=== PATIENT | male | born 1955 | race Caucasian/White ===

== ENCOUNTER → 2017-06-22 | Outpatient (CLI) | payer BC ==
--- NOTE | 2017-06-22 10:30 | RAD ---
APPROVED REPORT Patient Location : OUT-PATIENT Indications Varicose Veins Mahan scale images the bilateral saphenofemoral junctions do not reveal any significant thrombus on li mited imaging. The right great saphenous vein measures approximately 6.4 mm and does not show any evidence of reflux . The right anterior accessory saphenous vein measures approximately 4.1 mm and does not show any nery ar evidence of reflux. The left great saphenous vein measures approximate 5.2 mm and does not show an y significant evidence of reflux. The bilateral lesser saphenous veins do not show any evidence of reflux. Critical Notification Critical Value: No <Conclusion> Negative for reflux in the bilateral greater and lesser saphenous veins.
--- NOTE | 2017-06-22 11:41 | CARD ---
APPROVED REPORT EXAM: Two-dimensional and M-mode echocardiogram with Doppler and color Doppler. Other Information Quality : Average Rhythm : NSR INDICATION Lower extremity pain 2D DIMENSIONS RVDd3.6 (2.9-3.5cm)Left Atrium(2D)3.8 (1.6-4.0cm) IVSd0.9 (0.7-1.1cm)Aortic Root(2D)2.8 (2.0-3.7cm) LVDd5.3 (3.9-5.9cm)LVOT Diameter2.0 (1.8-2.4cm) PWd0.9 (0.7-1.1cm)LVDs2.4 (2.5-4.0cm) FS (%) 34.6 %SV117.3 ml LVEF(%)65.0 (>50%) Aortic Valve AoV Peak Harshad.173.3cm/sAoV VTI35.1cm AO Peak GR.12.0mmHgLVOT Peak Harshad.118.5cm/s LVOT VTI 24.13cmAO Mean GR.8mmHg BOO (VMAX)2.39at0DIB (VTI)2.25cm2 Mitral Valve MV E Ijtltpyx08.9cm/sMV DECEL [id number] MV A Pqyrkddm77.3cm/sMV FIW81an E/A Ratio1.1MV A Ilfinxki330sf MVA (PHT)2.99cm2 Tricuspid Valve TR P. Gezsrtwh861ym/sRAP NIFPSEME4toHv TR Peak Gr.[id number] LEFT VENTRICLE The left ventricle is normal size. There is normal left ventricular wall thickness. Left ventricle sy stolic function is normal. The Ejection Fraction is 60-65%. There is normal LV segmental wall motion. The left ventricular diastolic function and filling is normal for age. There is no ventricular septa l defect visualized. RIGHT VENTRICLE The right ventricle is normal size. The right ventricular systolic function is normal. ATRIA The left atrium size is normal. The right atrium size is normal. The interatrial septum is intact wit h no evidence for an atrial septal defect or patent foramen ovale as noted on 2-D or Doppler imaging. AORTIC VALVE The aortic valve is normal in structure and function. The aortic valve is trileaflet. Doppler and Col or Flow revealed no significant aortic regurgitation. There is no significant aortic valvular stenosi s. MITRAL VALVE Mitral annular calcification is mild. There is no mitral valve stenosis. Doppler and Color Flow revea led no mitral valve regurgitation noted. TRICUSPID VALVE The tricuspid valve is normal in structure and function. Doppler and Color Flow revealed trace tricus pid regurgitation. The PA pressure was estimated at 27 mmHg. There is no tricuspid valve stenosis. PULMONIC VALVE The pulmonic valve is not well visualized. Doppler and Color Flow revealed no pulmonic valvular regur gitation. There is no pulmonic valvular stenosis. GREAT VESSELS The aortic root is normal in size. Pulmonary veins not recorded. The IVC is dilated and collapses >50 % with inspiration. PERICARDIAL EFFUSION There is no evidence of significant pericardial effusion. Critical Notification Critical Value: No <Conclusion> Left ventricle systolic function is normal. The Ejection Fraction is 60-65%. There is normal LV segmental wall motion. Doppler and Color Flow revealed trace tricuspid regurgitation. The PA pressure was estimated at 27 mmHg. There is no evidence of significant pericardial effusion.
== END | disposition home or self-care (01) ==
LOC: US 07:35
PROVIDERS: ATTEND Internal Medicine Cardiovascular Disease
DX: M79.604 Pain in right leg (principal); M79.605 Pain in left leg; R06.00 Dyspnea, unspecified
CPT/HCPCS: 93306; 93970